=== PATIENT | female | born 2000 | race African-American/Black ===

== ENCOUNTER 2023-08-24 14:07 | Inpatient (IN) | payer OTHER ==
[2023-08-24] MEDS ORDERED: hydrALAZINE 20 MG/ML VIAL SLOW IVP PRN (14:11)
[2023-08-24 15:19] LABS: #Basophils 0.02 10x3/uL (0.0-0.2); #Eosinphils 0.08 10x3/uL (0.0-0.5); #Monocytes 0.98 10x3/uL (0.0-1.1); #Neutrophils 7.64 10x3/uL (1.5-8.4); %Basophils 0.2 % (0.0-2.0); %Eosinophils 0.7 % (0.0-6.0); %Lymphocytes 20.3 % (18.0-47.0); %Monocytes 8.9 % (0.0-10.0); %Neutrophils 69.4 % (40.0-75.0); Hematocrit 32.2 % (34.9-44.5); Hemoglobin 10.8 g/dL (12.0-15.5); Mean Corpuscular HGB CONC 33.5 g/dL (32.0-36.0); Mean Corpuscular Hemoglobin 30.3 pg (27.0-33.0); Mean Corpuscular Volume 90.2 fl (81.6-98.3); Mean Platelet Volume 11.4 fl (7.4-10.4); Platelet Count 196 10x3/uL (150-450); RBC Distribution Width 13.6 % (11.5-14.5); Red Blood Cell (RBC) Count 3.57 10x6/uL (3.90-5.03)
[2023-08-24 15:23] LABS: ALT (SGPT) 11 U/L (8-55); AST (SGOT) 19 U/L (5-34); Albumin 2.9 g/dL (3.5-5.0); Alkaline Phosphatase 155 U/L (40-110); Anion Gap 13 mmol/L (10-20); BUN (Urea Nitrogen) 5 mg/dL (7.0-18.7); Bilirubin, Total 0.2 mg/dL (0.2-1.2); Calc. Creatinine Clearance 0 mL/min (70-130); Carbon Dioxide 21 mmol/L (22-29); Chloride 106 mmol/L (98-107); Estimated GFR 132; Globulin 3.9 g/dL (2.4-3.5); Glucose 79 mg/dL (70-105); Potassium 3.5 mmol/L (3.5-5.1); Protein, Total 6.8 g/dL (6.0-8.3); Sodium 136 mmol/L (136-145)
[2023-08-24] MEDS ORDERED: Tranexamic Acid 1,000 MG/10 ML VIAL IVP PRN (15:57)
[2023-08-24] MEDS ORDERED: Ondansetron PF 4 MG/2 ML Vial IVP PRN ×2 (15:57→20:28)
[2023-08-24] MEDS ORDERED: Lorazepam 2 MG/ML VIAL SLOW IVP PRN (15:57)
[2023-08-24] MEDS ORDERED: Diphenoxylate HCl/Atropine Tablet PO PRN (15:57)
[2023-08-24] MEDS ORDERED: Promethazine HCl 25 MG/ML VIAL IM PRN ×2 (15:57→20:28)
[2023-08-24] MEDS ORDERED: Calcium Gluc 4.6 MEQ/10 ML (100 MG/ML) SLOW IVP PRN (15:57)
[2023-08-24] MEDS ORDERED: Labetalol HCl 100 MG/20 ML VIAL SLOW IVP PRN ×2 (15:57)
[2023-08-24] MEDS ORDERED: Carboprost 250 MCG/ML AMP IM PRN (15:57)
[2023-08-24] MEDS ORDERED: Misoprostol 200 MCG TAB PR PRN (15:57)
[2023-08-24] MEDS ORDERED: Acetaminophen 500 MG TAB PO PRN (15:57)
[2023-08-24] MEDS ORDERED: Oxytocin 30 units/NS 500 ML 500 ML IV SCH (16:00)
[2023-08-24 16:25] VITALS: BMI 40.4
[2023-08-24] MEDS: Acetaminophen 500 MG TAB PO SCH (16:45)
[2023-08-24] MEDS: Magnesium Sulfate 20 gm/500 ml 20 GM/500 ML BAG IVPB SCH (16:59)
[2023-08-24 17:04] LABS: Syphilis Antibody Nonreactive (Nonreactive); Syphilis Antibody Index 0.05 S/CO (<1.00 Non-Reactive)
[2023-08-24 17:05] LABS: Hep B Surf Ag - L&D Non-Reactive S/CO (NonReactive)
[2023-08-24] MEDS: Labetalol HCl 100 MG/20 ML VIAL SLOW IVP PRN (17:41)
[2023-08-24] MEDS: Bicitra 30 ML UDCUP PO PRN (18:17)
[2023-08-24] MEDS: CEFAZOLIN 2 GM in Sodium Chloride 0.9% 100 ML IVPB SCH (18:17)
[2023-08-24] MEDS: Famotidine/PF 20 mg/2ml Vial SLOW IVP PRN (18:18)
[2023-08-24 19:41] LABS: Analyzer IN Cardio CS NICU; RapidComm Collect By RN; pH (Cord, venous) 7.289 (7.250-7.350)
[2023-08-24 19:43] LABS: Analyzer IN Cardio CS NICU; RapidComm Collect By RN
[2023-08-24] MEDS ORDERED: Naloxone HCl 0.4 mg/ml Vial IVP PRN ×2 (20:28)
[2023-08-24] MEDS ORDERED: Morphine 4 MG/ML VIAL SLOW IVP PRN (20:28)
[2023-08-24] MEDS ORDERED: Moisturizing Cream (Eucerin) 113 GM JAR TOP PRN (20:28)
[2023-08-24] MEDS ORDERED: diphenhydrAMINE 50 MG/ML VIAL IVP PRN (20:28)
[2023-08-24] MEDS ORDERED: fentaNYL 50 mcg/mL 1 mL Vial SLOW IVP PRN (20:28)
[2023-08-24] MEDS ORDERED: Naloxone HCl 0.4 mg/ml Vial IV PRN (20:28)
[2023-08-24] MEDS ORDERED: Communication Order-Pharmacy FS SCH (20:30)
[2023-08-24] MEDS: Ketorolac Tromethamine 30 MG (1 mL) VIAL IVP SCH (21:05)
[2023-08-24] MEDS: Meperidine HCl/PF 25 MG (1 mL) VIAL SLOW IVP PRN (23:06)
[2023-08-24] MEDS: Ondansetron PF 4 MG/2 ML Vial IVP PRN (23:18)
[2023-08-25] MEDS: Lactated Ringer's 1,000 ML IV SCH (07:40)
[2023-08-25] MEDS: NIFEdipine XL 30 MG ER.TAB PO SCH (11:34)
[2023-08-25] MEDS: Furosemide 20 MG (2 mL) VIAL SLOW IVP SCH (11:34)
[2023-08-25] MEDS: Morphine PF 10 MG/10 ML VIAL ONE (12:13)
[2023-08-25] MEDS: fentaNYL 50 mcg/mL 1 mL Vial ONE (12:13)
[2023-08-25] MEDS: Ondansetron PF 4 MG/2 ML Vial ONE (12:13)
[2023-08-25] MEDS: ePHEDrine Sulfate 50 MG/10 ML VIAL ONE (12:13)
[2023-08-25] MEDS: Oxytocin 10 UNITS/ML VIAL ONE ×2 (12:13)
[2023-08-25] MEDS: PHENYLEPHRINE-NS 100 MCG/ML 10 ML SYRINGE ONE ×2 (12:13→12:14)
[2023-08-25] MEDS: PROPOFOL 0 ML ONE (12:14)
[2023-08-25] MEDS: diphenhydrAMINE 50 MG/ML VIAL ONE (12:14)
[2023-08-25] MEDS: Ketorolac Tromethamine 30 MG (1 mL) VIAL IVP PRN (14:39)
[2023-08-25] MEDS ORDERED: Ondansetron PF 4 MG/2 ML Vial IVP PRN (21:22)
[2023-08-25] MEDS ORDERED: NIFEdipine 10 MG CAP PO PRN ×2 (21:22)
[2023-08-25] MEDS ORDERED: Tranexamic Acid 1,000 MG/10 ML VIAL IVP PRN (21:22)
[2023-08-25] MEDS ORDERED: Magnesium Sulfate 20 gm/500 ml 20 GM/500 ML BAG IVPB SCH (21:22)
[2023-08-25] MEDS ORDERED: Simethicone Chewable 80 MG TAB PO PRN (21:22)
[2023-08-25] MEDS ORDERED: Boostrix 0.5 ML (Tdap) VIAL (>/=7 yrs of age) IM ONE (21:22)
[2023-08-25] MEDS ORDERED: Lanolin Ointment 7 GM TUBE TOP PRN (21:22)
[2023-08-25] MEDS ORDERED: Misoprostol 200 MCG TAB PR PRN (21:22)
[2023-08-25] MEDS ORDERED: Labetalol HCl 100 MG/20 ML VIAL SLOW IVP PRN (21:22)
[2023-08-25] MEDS ORDERED: diphenhydrAMINE 25 MG CAP PO PRN (21:22)
[2023-08-25] MEDS ORDERED: Oxytocin 30 units/NS 500 ML 500 ML IV SCH (21:22)
[2023-08-25] MEDS ORDERED: hydrALAZINE 20 MG/ML VIAL SLOW IVP PRN (21:22)
[2023-08-25] MEDS ORDERED: Calcium Gluc 4.6 MEQ/10 ML (100 MG/ML) SLOW IVP PRN (21:22)
[2023-08-25] MEDS ORDERED: Lorazepam 2 MG/ML VIAL SLOW IVP PRN (21:22)
[2023-08-25] MEDS: Prenatal Vitamin 1 TAB PO SCH (23:21)
[2023-08-25] MEDS: Ibuprofen 800 MG TAB PO SCH (23:21)
[2023-08-25] MEDS: Ferrous Sulfate 325 MG TAB PO SCH (23:22)
[2023-08-25] MEDS: Docusate 100 MG CAP PO SCH (23:22)
[2023-08-26] MEDS: Acetaminophen 500 MG TAB PO SCH (01:48)
[2023-08-26 03:41] LABS: Hematocrit 30.9 % (34.9-44.5); Hemoglobin 10.3 g/dL (12.0-15.5); Mean Corpuscular HGB CONC 33.3 g/dL (32.0-36.0); Mean Corpuscular Hemoglobin 30.2 pg (27.0-33.0); Mean Corpuscular Volume 90.6 fl (81.6-98.3); Mean Platelet Volume 10.9 fl (7.4-10.4); Platelet Count 189 10x3/uL (150-450); RBC Distribution Width 13.6 % (11.5-14.5); Red Blood Cell (RBC) Count 3.41 10x6/uL (3.90-5.03); White Blood Cell (WBC) Count 15.1 10x3/uL (3.5-10.5)
[2023-08-26] MEDS: Ketorolac Tromethamine 30 MG (1 mL) VIAL IVP SCH (03:42)
[2023-08-26] MEDS: Prenatal Vitamin 1 TAB PO SCH (08:23)
[2023-08-26] MEDS: Ferrous Sulfate 325 MG TAB PO SCH (08:24)
[2023-08-26] MEDS: Docusate 100 MG CAP PO SCH (08:24)
[2023-08-26] MEDS: NIFEdipine XL 30 MG ER.TAB PO SCH (08:24)
[2023-08-27 11:39] VITALS: BP 144/77; TEMP 98.3
== END 2023-08-27 11:15 | disposition home or self-care (01) | DRG 787 ==
LOC: CSHLD/OP 14:07 → CSHLD 16:00 → CSHPP 08-25 22:20
PROVIDERS: ADMIT Student in an Organized Health Care Education/Training Program; ATTEND Student in an Organized Health Care Education/Training Program
PROC: 10D00Z1 Extraction of Products of Conception, Low, Open Approach (ICD-10-PCS; principal; 2023-08-24)
DX: O14.14 Severe pre-eclampsia complicating childbirth (principal); Q61.3 Polycystic kidney, unspecified; O99.02 Anemia complicating childbirth; Z3A.36 36 weeks gestation of pregnancy; Z37.0 Single live birth; O99.824 Streptococcus B carrier state complicating childbirth; O99.892 Other specified diseases and conditions complicating childbirth; D56.3 Thalassemia minor; O99.214 Obesity complicating childbirth; E66.9 Obesity, unspecified; O34.211 Maternal care for low transverse scar from previous cesarean delivery; N73.6 Female pelvic peritoneal adhesions (postinfective)
CPT/HCPCS: 36415; 51702; 80053; 82570; 82805; 84156; 85025; 85027; 86780; 86850; 86900; 86901; 87340; 88307; 99285; J1200; J1885; J1940; J2175; J2274; J2405; J2590; J2704; J3010; J3475; J3490; J7120; S0028

== ENCOUNTER 2023-09-08 22:51 | Emergency (ER) | payer OTHER ==
[2023-09-08] MEDS ORDERED: Bacitracin 1 PK ONE (23:12)
== END 2023-09-08 23:20 | disposition home or self-care (01) ==
LOC: CSHERS 22:51
DX: Z48.00 Encounter for change or removal of nonsurgical wound dressing (principal); I10 Essential (primary) hypertension
CPT/HCPCS: 99283